=== PATIENT | male | born 1930 | race Caucasian/White ===

== ENCOUNTER 2018-02-02 17:51 | Observation (INO) | payer MEDICARE, OTHER ==
[~2018-02-02] VITALS: Ht 180.3 cm; Wt 83.2 kg
[~2018-02-02 17:51] MED LIST: AC325T PO; ASPIR 8181 MG PO; B-121000 MCG PO; CITALOPRAM HBR20 MG PO; CLONIDINE HCL0.1 MG PO; CYANOCOBAL1000 MCG/M IM; GABAPENTIN300 MG PO; HDRL25T PO; LANTUS 3ML100 UNITS/ SQ; LASIX20 MG PO; NOVOLOG100 UNIT/1 SQ; PREDNISONE5 MG PO; SYNTHROID50 MCG PO; ULTRAM50 MG PO; VERAPAMIL ER120 MG PO
[2018-02-02 18:47] LABS: CLARITY,URINE SL CLOUDY (CLEAR); COLOR,URINE YELLOW (YELLOW)
[2018-02-02 18:48] LABS: BILIRUBIN,URINE NEGATIVE (NEGATIVE); KETONES,URINE NEGATIVE (NEGATIVE); LEUKOCYTE ESTERASE ,URINE NEGATIVE (NEGATIVE); NITRITE,URINE NEGATIVE (NEGATIVE); PROTEIN,URINE DIPSTICK 2+ (NEGATIVE); URINE UROBILINOGEN 0.2 mg/dL (0.2 - 1)
[2018-02-02 18:58] LABS: BASOPHILS # (AUTO) 0.1 (0.0-0.1); BASOPHILS % 1.3 % (0.0-1.0); EOSINOPHILS # (AUTO) 0.4 (0.0-0.4); EOSINOPHILS % 4.9 % (0.0-6.0); HEMATOCRIT 32.8 % (38.2-49.6); LYMPHOCYTES # (AUTO) 1.4 (1.0-3.2); MEAN CORPUSCULAR HEMOGLOBIN 31.4 pg (28-32); MEAN CORPUSCULAR HGB CONC 33.5 g/dL (31-35); MEAN CORPUSCULAR VOLUME 93.7 fL (81-99); MONOCYTES # (AUTO) 0.6 (0.2-0.8); NEUTROPHILS # (AUTO) 4.9 (2.1-6.9); NEUTROPHILS % 66.5 % (38.7-80.0); PLATELET COUNT 222 x10e3/uL (140-360); RED CELL DISTRIBUTION WIDTH 12.4 % (11.7-14.4)
[2018-02-02 19:03] LABS: BACTERIA,URINE RARE /HPF; MUCUS,URINE FEW (RARE); RBC,URINE 0-5 /HPF (0-5); WBC,URINE (MAN) 0-5 /HPF (0-5)
[2018-02-02 20:59] LABS: ALBUMIN 3.7 g/dL (3.5-5.0); ALBUMIN/GLOBULIN RATIO 1.1 (0.8-2.0); ANION GAP 11.8 mmol/L (8-16); CALCIUM 11.4 mg/dL (8.4-10.2); CREATININE, SERUM 3.51 mg/dL (0.72-1.25); POTASSIUM 4.8 mmol/L (3.5-5.1)
[2018-02-02] MEDS ORDERED: SODIUM CHLORIDE 0.9% 1000ML 1,000 ML IV ONE (22:00)
[2018-02-02] MEDS ORDERED: SODIUM CHLORIDE 0.9% 1000ML 1,000 ML IV SCH (22:33)
[2018-02-02] MEDS ORDERED: ONDANSETRON HCL INJ 2 MG/ML VIAL IV PRN (22:45)
[2018-02-02] MEDS ORDERED: DEXTROSE 50% SYRINGE 50 ML IV PRN (22:45)
[2018-02-03] MEDS: INSULIN REGULAR, HUMAN 100 UNIT/1 ML 3ML VIAL SQ SCH ×3 (00:12→12:04)
[2018-02-03 00:45] VITALS: BP 179/75
[2018-02-03 00:51] VITALS: BP 179/75
[2018-02-03] MEDS ORDERED: LANTUS 3ML100 UNITS/ SQ ×2 (00:59)
[2018-02-03 01:00] VITALS: BP 179/75
[2018-02-03] MEDS ORDERED: FERROUS SULFAT324 MG PO (01:37)
[2018-02-03] MEDS ORDERED: DETROL LA4 MG PO (01:37)
[2018-02-03] MEDS ORDERED: NAMENDA10 MG PO (01:37)
[2018-02-03] MEDS ORDERED: NISOLDIPINE40 MG PO (01:37)
[2018-02-03] MEDS ORDERED: VIT D PO (01:37)
[2018-02-03] MEDS ORDERED: CALCITRIOL0.25 MCG PO (01:37)
[2018-02-03] MEDS ORDERED: HYDRALAZINE HCL25 MG PO (01:37)
[2018-02-03] MEDS ORDERED: FINASTERIDE5 MG PO (01:37)
[2018-02-03 05:20] VITALS: BP 164/72
[2018-02-03 06:38] LABS: BASOPHILS # (AUTO) 0.1 (0.0-0.1); BASOPHILS % 1.6 % (0.0-1.0); EOSINOPHILS # (AUTO) 0.3 (0.0-0.4); HEMOGLOBIN 11.1 g/dL (14.0-18.0); LYMPHOCYTES # (AUTO) 1.3 (1.0-3.2); LYMPHOCYTES % 22.2 % (18.0-39.1); MEAN CORPUSCULAR HEMOGLOBIN 31.3 pg (28-32); MEAN CORPUSCULAR HGB CONC 33.6 g/dL (31-35); MONOCYTES # (AUTO) 0.6 (0.2-0.8); MONOCYTES % 9.8 % (4.4-11.3); NEUTROPHILS # (AUTO) 3.4 (2.1-6.9); NEUTROPHILS % 60.2 % (38.7-80.0); PLATELET COUNT 172 x10e3/uL (140-360); RED BLOOD COUNT 3.55 x10e6/uL (4.3-5.7); RED CELL DISTRIBUTION WIDTH 12.1 % (11.7-14.4)
[2018-02-03 07:03] LABS: ALBUMIN 3.1 g/dL (3.5-5.0); CALCIUM 10.4 mg/dL (8.4-10.2); CREATININE, SERUM 3.14 mg/dL (0.72-1.25); POTASSIUM 4.5 mmol/L (3.5-5.1)
[2018-02-03 07:04] LABS: ANION GAP 5.5 mmol/L (8-16)
[2018-02-03 10:45] LABS: % IRON SATURATION 28 % (15-50); IRON 60 ug/dL (65-175); TOTAL IRON BINDING CAPACITY 218 ug/dL (261-478); TRANSFERRIN 156 mg/dL (174-364)
[2018-02-03 11:08] LABS: FREE THYROXINE INDEX 1.737 (1.4-3.8); THYROID STIMULATING HORMONE 3.475 uIU/mL (0.350-4.940)
[2018-02-03] MEDS ORDERED: TRAMADOL HCL 50 MG TAB PO PRN (11:15)
[2018-02-03] MEDS ORDERED: INSULIN LISPRO 100 UNIT/1 ML 3ML VIAL SQ SCH (11:30)
[2018-02-03 11:55] VITALS: BP 199/88
--- NOTE | 2018-02-03 11:57 | History and Physical ---
CLINICAL HISTORY: This is an 87-year-old white man with severe dementia and severe chronic kidney disease with a creatinine of 3.5 and a GFR of 17, admitted via the emergency room because of possible mild volume depletion. This unfortunate gentleman has chronic kidney disease, creatinine running in the range of 3.0. Intermittently he will become dehydrated at home, partly due to his dementia, partly due to him still taking Lasix 20 mg per day. He will require hospitalization for intravenous fluids. This time the doctor's office had called him, stating that his creatinine was elevated, to go to the emergency room. He is otherwise feeling fine with no complaints, no shortness of breath, no chest pains, no swelling. He came to the emergency room, was seen by the emergency room physician who felt the patient should be given intravenous fluids overnight and therefore decided to hospitalize him. PAST MEDICAL HISTORY: Remarkable for severe dementia, insulin-dependent diabetes, iron deficiency, prostate enlargement, hypertension, chronic pain, bladder dysfunction. MEDICATIONS INCLUDED: Lasix 20 mg per day. Calcitriol 0.25 mg capsule daily. Clonidine 0.1 mg p.o. t.i.d. Vitamin B12. Iron sulfate 325 mg nightly. Finasteride 5 mg p.o. daily. Gabapentin 300 mg b.i.d. Hydralazine 25 mg tablet 2 t.i.d. NovoLog insulin 10 units t.i.d. with meals. Lantus insulin 20 units subcutaneous daily. Lantus insulin 10 subcutaneous nightly. Levothyroxine 50 mcg daily. Namenda 10 mg p.o. daily. Nisoldipine 40 mg p.o. daily. Detrol 4 mg p.o. daily. Tramadol 50 mg daily. PERSONAL AND SOCIAL HISTORY/FAMILY HISTORY: Deferred. REVIEW OF SYSTEMS: Deferred. PHYSICAL EXAM: GENERAL: The patient is demented, oriented times 0. CARDIOVASCULAR: Jugular veins were not distended. S1 and S2 were regular. There are no appreciable murmurs. RESPIRATORY: Clear. ABDOMEN: Soft. Bowel sounds are present. EXTREMITIES: Show no cyanosis, clubbing or edema. LABORATORY STUDIES: Electrocardiogram showed sinus bradycardia at 51 beats per minute, a 1st-degree AV block, nonspecific ST changes. X-ray was not done. Electrolytes were normal. BUN is 44, creatinine 3.5. The white count is 7400, hemoglobin 11, platelet count 222,000. IMPRESSION: 1. Chronic kidney disease stage 4 with a glomerular filtration rate of 17, possibly requiring dialysis soon but followed by Renal. 2. Possible mild volume depletion. 3. Preserved left ventricular ejection fraction. 4. Severe dementia. 5. Insulin-dependent diabetes. 6. Hypertension. 7. Iron deficiency anemia. 8. Bradycardia possibly due to clonidine as well as Namenda and underlying age. There is history of hypothyroidism. The patient is already on thyroid medication. 9. Chronic pain. RECOMMENDATIONS: Check thyroid functions. Stool guaiac, iron level. Possible discharge. Job#: [id number] EV cc:RYLIE BELLA MD
[2018-02-03] MEDS ORDERED: HYDRALAZINE HCL 25 MG TAB PO SCH (15:00)
--- NOTE | 2018-02-03 16:51 | Discharge Summary ---
HISTORY OF PRESENT ILLNESS: This is an 87-year-old severely demented gentleman with chronic kidney disease, admitted via the emergency room because of abnormal BUN and creatinine, called by the doctor's office for the patient to come to the emergency room. The patient was admitted, thinking perhaps he has some degree of volume depletion with underlying severe renal insufficiency, for intravenous fluids. Please refer to my previous dictation concerning details of current illness, past medical history, personal and social history, family history, review of systems, physical examination, initial laboratory studies. HOSPITAL COURSE: The patient was given intravenous fluids with slight improvement in the BUN and creatinine, dropping from a BUN of 44 to 42 with creatinine dropping from 3.5 to 3.1. It was felt the patient has reached maximal hospital benefit, to be discharged and followed further by Renal and Dr. Clark Bella. Discharge medications are the same as on admission with the exception that the Lasix was discontinued. CLIF CASTILLO MD Job#: [id number] EV cc:CLARK BELLA MD
[2018-02-03] MEDS ORDERED: GABAPENTIN 300 MG CAP PO SCH (17:00)
[2018-02-04] MEDS ORDERED: LEVOTHYROXINE SODIUM 50 MCG TAB PO SCH (06:30)
[2018-02-04] MEDS ORDERED: MEMANTINE 10 MG TAB PO SCH (09:00)
[2018-02-04] MEDS ORDERED: TOLTERODINE TARTRATE 4 MG CAPCR PO SCH (09:00)
[2018-02-04] MEDS ORDERED: CYANOCOBALAMIN INJ 1,000 MCG/ML VIAL IM SCH (09:00)
[2018-02-04] MEDS ORDERED: CALCITRIOL 0.25 MCG CAP PO SCH (09:00)
[2018-02-04] MEDS ORDERED: FINASTERIDE 5 MG TAB PO SCH (21:00)
--- NOTE | 2018-02-05 09:41 | Cardiology Report ---
DATE OF STUDY: February 03, 2018 ECHOCARDIOGRAM M-MODE: Dilated left atrium. Left ventricular hypertrophy. Normal contractility. Thickened mitral leaflet. Normal aortic valve. Normal tricuspid valves. No pericardial effusion. SECTOR SCAN: Dilated left atrium. Left ventricular hypertrophy. Normal contractility. Ejection fraction is approximately 65%. Mitral leaflet slightly thickened. No mitral stenosis. Aortic and tricuspid also are normal. There is no pericardial effusion. CARDIAC DOPPLER STUDY WITH COLOR: Mitral and tricuspid regurgitation. Evidence of diastolic dysfunction. CONCLUSION 1. Left ventricular hypertrophy with ejection fraction of 65%. 2. Trace mitral regurgitation with mildly enlarged left atrium. 3. Slightly thickened mitral leaflet. 4. Trace tricuspid regurgitation. 5. Evidence of diastolic dysfunction. Job#: [id number] RI cc:RYLIE BELLA MD
== END 2018-02-03 13:30 | disposition home or self-care (01) ==
LOC: ER 17:51 → ERHOLD 22:43 → IMCU 23:17
PROVIDERS: ADMIT Internal Medicine; ATTEND Internal Medicine
DX: E86.0 Dehydration (principal); F03.90 Unspecified dementia, unspecified severity, without behavioral disturbance, psychotic disturbance, mood disturbance, and anxiety; N18.4 Chronic kidney disease, stage 4 (severe); E11.22 Type 2 diabetes mellitus with diabetic chronic kidney disease; I12.9 Hypertensive chronic kidney disease with stage 1 through stage 4 chronic kidney disease, or unspecified chronic kidney disease; Z79.4 Long term (current) use of insulin; D50.9 Iron deficiency anemia, unspecified; R00.1 Bradycardia, unspecified; E03.9 Hypothyroidism, unspecified; G89.29 Other chronic pain
CPT/HCPCS: 36415 ×2; 80053 ×2; 81001; 82948 ×2; 83540; 83970; 84436; 84443; 84466; 84479; 85025 ×2; 93005; 93306; 99284; G0378 ×2; J7030 ×2